=== PATIENT | female | born 2000 | race African-American/Black ===

== ENCOUNTER 2021-10-20 17:35 | Emergency (ER) | payer SELFPAY ==
[2021-10-20] MEDS ORDERED: CEFTRIAXONE 500 MG/VIAL ONE (18:18)
[2021-10-20] MEDS ORDERED: LIDOCAINE 1% MPF 5 ML VIAL ONE (18:19)
[2021-10-20] MEDS ORDERED: AZITHROMYCIN 250 MG TAB ONE (18:20)
--- NOTE | 2021-10-20 18:25 | ER ---
Nurse's Notes [facility] Name: Adela Sanchez Age: 20 yrs Sex: Female : 2000 Arrival Date: 10/20/2021 Time: 17:36 Bed Treatment Private MD: Diagnosis: Contact with and (suspected) exposure to infections with a predominantly sexual mode of transmission Presentation: 10/20 17:56 Chief complaint: Patient states: "My boyfriend has been having leaking from his penis ab2 and so i wanted to get checked out." Pt denies any urinary symptoms or vaginal discharge. Coronavirus screen: Vaccine status: Patient reports receiving the 1st dose of the Covid vaccine. Client denies travel out of the [place] in the last 14 days. At this time, the client does not indicate any symptoms associated with coronavirus-19. Ebola Screen: Patient negative for fever greater than or equal to 101.5 degrees Fahrenheit, and additional compatible Ebola Virus Disease symptoms Patient denies exposure to infectious person. Patient denies travel to an Ebola-affected area in the 21 days before illness onset. No symptoms or risks identified at this time. Initial Sepsis Screen: Does the patient meet any 2 criteria? No. Patient's initial sepsis screen is negative. Does the patient have a suspected source of infection? No. Patient's initial sepsis screen is negative. Risk Assessment: Do you want to hurt yourself or someone else? Patient reports no desire to harm self or others. Onset of symptoms is unknown. 17:56 Method Of Arrival: Ambulatory ab2 17:56 Acuity: SHI 4 ab2 Triage Assessment: 17:58 General: Appears in no apparent distress. uncomfortable, Behavior is calm, cooperative, ab2 appropriate for age. Pain: Denies pain. Neuro: Level of Consciousness is awake, alert, obeys commands, Oriented to person, place, time, situation, Appropriate for age Program Aide are equal bilaterally Moves all extremities. Gait is steady. Cardiovascular: Denies chest pain, shortness of breath, Patient's skin is warm and dry. Respiratory: Airway is patent Respiratory effort is even, unlabored, Respiratory pattern is regular, symmetrical. GI: No deficits noted. No signs and/or symptoms were reported involving the gastrointestinal system. : No deficits noted. No signs and/or symptoms were reported regarding the genitourinary system. Derm: Skin is intact, is healthy with good turgor. Historical: - Allergies: 17:57 No Known Allergies; ab2 - PMHx: 17:57 None; ab2 - PSHx: 17:57 None; ab2 - Immunization history:: Adult Immunizations up to date. - Social history:: Smoking status: Patient denies any tobacco usage or history of. Screenin:58 Abuse screen: Denies threats or abuse. Denies injuries from another. Nutritional ab2 screening: No deficits noted. Tuberculosis screening: No symptoms or risk factors identified. Fall Risk None identified. Vital Signs: 17:56 BP 151 / 98; Pulse 108; Resp 17; Temp 98.8; Pulse Ox 100% ; Weight 115.67 kg; Height 5 ab2 ft. 3 in. (160.02 cm); Pain 0/10; 17:56 Body Mass Index 45.17 (115.67 kg, 160.02 cm) ab2 ED Course: 17:36 Patient arrived in ED. am2 17:40 [facility] Ruiz [facility]. 7 17:40 Guy Pang MD is Attending Physician. 7 17:57 Triage completed. ab2 17:58 Arm band placed on right wrist. ab2 17:58 Patient has correct armband on for positive identification. Bed in low position. Call ab2 light in reach. Side rails up X2. 17:58 No provider procedures requiring assistance completed. ab2 18:17 Berkley Kline RN is Primary Nurse. iw Administered Medications: 18:21 Drug: Rocephin (cefTRIAXone) 500 mg Route: IM; Site: right deltoid; iw 18:21 Drug: AZITHromycin 1 grams Route: PO; iw Outcome: 18:23 Discharge ordered by . 7 18:32 Patient left the ED. iw Signatures: Berkley Kline RN RN Arianna Newby am2 Flakito De Leon ab2 Nita Ruiz FNP FNP [facility]
--- NOTE | 2021-10-20 18:25 | EDPHYS ---
Physician Documentation [facility] Name: Adela Sanchez Age: 20 yrs Sex: Female : 2000 Arrival Date: 10/20/2021 Time: 17:36 Bed Treatment Private MD: ED Physician Guy Pang HPI: 10/20 18:31 This 20 yrs old Black Female presents to ER via Ambulatory with complaints of STD jh7 Exposure - possible/no symptoms. 18:31 Patient reports exposure to an STD 4 days ago. She denies any symptoms at this time. No jh7 medical problems or allergies.. Historical: - Allergies: 17:57 No Known Allergies; ab2 - PMHx: 17:57 None; ab2 - PSHx: 17:57 None; ab2 - Immunization history:: Adult Immunizations up to date. - Social history:: Smoking status: Patient denies any tobacco usage or history of. ROS: 18:31 Constitutional: Negative for fever, chills, and weight loss, Cardiovascular: Negative [facility] for chest pain, palpitations, and edema, Respiratory: Negative for shortness of breath, cough, wheezing, and pleuritic chest pain, Abdomen/GI: Negative for abdominal pain, nausea, vomiting, diarrhea, and constipation, Skin: Negative for injury, rash, and discoloration. 18:31 All other systems are negative. Exam: 18:31 Constitutional: This is a well developed, well nourished patient who is awake, alert, jh7 and in no acute distress. Respiratory: Lungs have equal breath sounds bilaterally, clear to auscultation and percussion. Abdomen/GI: Soft, non-tender, with normal bowel sounds. No distension or tympany. No guarding or rebound. No evidence of tenderness throughout. Skin: Warm, dry with normal turgor. Normal color with no rashes, no lesions, and no evidence of cellulitis. Vital Signs: 17:56 BP 151 / 98; Pulse 108; Resp 17; Temp 98.8; Pulse Ox 100% ; Weight 115.67 kg; Height 5 ab2 ft. 3 in. (160.02 cm); Pain 0/10; 17:56 Body Mass Index 45.17 (115.67 kg, 160.02 cm) ab2 MDM: 18:08 Patient medically screened. [facility] 18:31 Differential diagnosis: STD Exposure. ED course: Patient reports exposure to an STD 4 jh7 days ago. She reports that she was sexually active with her boyfriend 4 days ago, who is having symptoms of an STD. She denied any symptoms. Agreed to go ahead and treat her for gonorrhea and chlamydia, and she will follow-up with her PCP for additional labs as needed.. Administered Medications: 18:21 Drug: Rocephin (cefTRIAXone) 500 mg Route: IM; Site: right deltoid; iw 18:21 Drug: AZITHromycin 1 grams Route: PO; iw Disposition Summary: 10/20/21 18:23 Discharge Ordered Location: Home [facility] Problem: new [facility] Symptoms: are unchanged [facility] Condition: Stable [facility] Diagnosis - Contact with and (suspected) exposure to infections with a predominantly sexual [facility] mode of transmission Followup: [facility] - With: Private Physician - When: 2 - 3 days - Reason: Recheck today's complaints Discharge Instructions: - Discharge Summary Sheet [facility] - Safe Sex [facility] - Preventing Sexually Transmitted Infections, Adult [facility] Forms: - Medication Reconciliation Form [facility] - Thank You Letter [facility] - Antibiotic Education [facility] - Prescription Opioid Use [facility] Signatures: Berkley Kline, RN RN iw Flakito De Leon Jennifer, FNP [employer] [facility]
[2021-10-20 18:51] VITALS: BP 151/98; TEMP 98.8; O2SAT 100
== END 2021-10-20 18:32 | disposition home or self-care (01) ==
LOC: ER 17:35
DX: Z20.2 Contact with and (suspected) exposure to infections with a predominantly sexual mode of transmission (principal)
CPT/HCPCS: 96372; 99282; J0696